=== PATIENT | male | born 1985 | race Caucasian/White ===

== ENCOUNTER 2018-01-22 15:47 | Inpatient (IN) | payer OTHER ==
[2018-01-22 17:59] VITALS: BMI 40.8
--- NOTE | 2018-01-22 20:21 | HP ---
Admission ROS [facility] Chief Complaint: Rehab for alcohol dependence Allergies/Adverse Reactions: Allergies Allergy/AdvReac Type Severity Reaction Status Date / Time No Known Allergies Allergy Verified 01/22/18 18:51 History of Present Illness: 32 years old male with a long history of alcohol dependence is seeking admission to Rehab. Patient was recently detoxed at [facility]. He has medical history of chronic back pain, anxiety and depression. Patient reports suicidal attempt in 2011 and on January 09, 2018. Denies suicidal ideation at this time. This is his first admission to [facility]. Exam Limitations: No Limitations - Ebola screening Have you traveled outside of the country in the last 21 days: No Have you had contact with anyone from an Ebola affected area: No Have you been sick,other than usual withdrawal symptoms: No Do you have a fever: No - Review of Systems Constitutional: No Symptoms Reported EENT: reports: No Symptoms Reported Respiratory: reports: No Symptoms reported Cardiac: reports: No Symptoms Reported GI: reports: No Symptoms Reported : reports: No Symptoms Reported Musculoskeletal: reports: No Symptoms Reported Integumentary: reports: No Symptoms Reported Neuro: reports: No Symptoms reported Endocrine: reports: No Symptoms Reported Hematology: reports: No Symptoms Reported Psychiatric: reports: No Sypmtoms Reported, Mood/Affect Appropiate, Orientated x3 Other Systems: Reviewed and Negative Patient History - Patient Medical History Hx Anemia: No Hx Asthma: No Hx Chronic Obstructive Pulmonary Disease (COPD): No Hx Cancer: No Hx Cardiac Disorders: No Hx Congestive Heart Failure: No Hx Hypertension: No Hx Hypercholesterolemia: No HX Cerebrovascular Accident: No Hx Seizures: Yes (Not on medication) Hx Diabetes: No Hx Gastrointestinal Disorders: No Hx Liver Disease: No Hx Genitourinary Disorders: No Hx Sexually Transmitted Disorders: No Hx Renal Disease (ESRD): No Hx Thyroid Disease: No Hx Human Immunodeficiency Virus (HIV): No (Negative 2017) Hx Hepatitis C: No Hx Depression: Yes (Not on medication) Hx Suicide Attempt: Yes (Reports attempt in 2011 & January 09, 2018. Denies suicidal ideation now.) Hx Bipolar Disorder: No Hx Schizophrenia: No Other Medical History: OBESITY - Patient Surgical History Past Surgical History: No - PPD History Previous Implant?: Yes Documented Results: Negative w/o proof Implanted On Prior [facility] Admission?: No PPD to be Administered?: Yes - Reproductive History Patient is a Female of Child Bearing Age (11 -55 yrs old): No (MALE) - Smoking Cessation Smoking history: Former smoker Have you smoked in the past 12 months: No If you are a former smoker, when did you quit?: 15 years ago Hx Chewing Tobacco Use: No Initiated information on smoking cessation: No - Substance & Tx. History Hx Alcohol Use: Yes Hx Substance Use: No Substance Use Type: Alcohol Hx Substance Use Treatment: Yes ([facility]) - Substances Abused Alcohol Route: Oral Amount used: SERAFIN - 1 LITER Age of first use: 20 Date of Last Use: 01/09/18 Family Disease History - Family Disease History Family Disease History: Diabetes: Father (rheumathoid arrthritis), Respiratory: Mother (rheumathoid arthritis, astrhma), Other: Father, Mother Admission Physical Exam [facility] - Vital Signs Vital Signs: Vital Signs - 24 hr 01/22/18 17:57 Temperature 98.1 F Pulse Rate 83 Respiratory 18 Rate Blood Pressure 124/74 - Physical General Appearance: Yes: No Apparent Distress, Appropriately Dressed HEENTM: Yes: EOMI, Normal ENT Inspection, Normal Voice, NELDA Respiratory: Yes: Lungs Clear, Normal Breath Sounds, No Respiratory Distress Neck: Yes: Supple, Trachea in good position Breast: Yes: Breast Exam Deferred Cardiology: Yes: Regular Rhythm, Regular Rate, S1, S2 Abdominal: Yes: Normal Bowel Sounds, Soft Genitourinary: Yes: Within Normal Limits Back: Yes: Normal Inspection Musculoskeletal: Yes: Within Normal Limits Extremities: Yes: Normal Inspection, Non-Tender Neurological: Yes: Alert, Normal Mood/Affect Integumentary: Yes: Dry Lymphatic: Yes: Within Normal Limits - Diagnostic (1) Alcohol dependence, uncomplicated Current Visit: Yes Status: Chronic (2) Anxiety Current Visit: Yes Status: Chronic (3) Depression Current Visit: Yes Status: Chronic Qualifiers: Depression Type: unspecified Qualified Code(s): F32.9 - Major depressive disorder, single episode, unspecified (4) Back pain Current Visit: Yes Status: Acute Qualifiers: Back pain location: low back pain (5) Low back pain Current Visit: Yes Status: Chronic Qualifiers: Chronicity: chronic Cleared for Admission [facility] - Detox or Rehab [facility] Level of Care: Observation Bed Claeared for Rehab Admission: Yes [facility] Breath Alcohol Content Breath Alcohol Content: 0 Urine Drug Screen - Results Drug Screen Negative: No Urine Drug Screen Results: BZO-Benzodiazepines Inpatient Rehab Admission - Initial Determination Are CD services needed?: Yes Free of communicable disease: Yes Not in need of hospitalization: Yes - Rehab Admission Criteria Previous failed treatment: Yes Poor recovery environment: Yes Comorbidities: Yes Lacks judgement: No Patient is meeting Inpatient Rehab admission criteria:: Yes
[2018-01-22] MEDS ORDERED: MAGNESIUM CITRATE 300 ML BOTTLE PO PRN (20:35)
[2018-01-22] MEDS ORDERED: LOPERAMIDE HCL 2 MG CAPSULE PO PRN (20:35)
[2018-01-22] MEDS ORDERED: MAGNESIUM HYDROX 2400MG/30ML ORAL SUSPENSION 30 ML CUP PO PRN (20:35)
[2018-01-22] MEDS ORDERED: MENTHOL/PHENOL 1 EACH UD MM PRN (20:35)
[2018-01-22] MEDS ORDERED: P-EPHED 60MG/TRIPROLIDI 2.5MG TABLET PO PRN (20:35)
[2018-01-22] MEDS ORDERED: MAG HYDROX/AL HYDROX/SIMETH 30 ML UNIT-DOSE CUP PO PRN (20:35)
[2018-01-22] MEDS ORDERED: guaiFENesin/D-METHORPHAN HB 10 ML UNIT-DOSE CUPS PO PRN (20:35)
[2018-01-22] MEDS ORDERED: ACETAMINOPHEN 325 MG TABLET (FP) PO PRN (20:35)
--- NOTE | 2018-01-22 21:15 | PN ---
[facility] Progress Note Note: Newly admitted patient from [facility]. Medication reconciliation done(Sertraline 50 mg po daily, Seroquel 100 mg po HS and Risperdal 0.5 mg po daily). Home medication list from [facility] showed that Seroquel was last taken by patient on and Sertraline, Risperdal last taken on 01/22/18
[2018-01-22] MEDS ORDERED: MELATONIN 5 MG TABLETS PO PRN (22:00)
[2018-01-22] MEDS ORDERED: QUEtiapine FUMARATE 100 MG TABLET (FP) PO SCH (22:00)
[2018-01-22] MEDS: THIAMINE HCL 100 MG TABLET (FP) PO SCH (22:59)
[2018-01-22] MEDS ORDERED: TUBERCULIN PPD 5 TU/0.1ML VIAL ID ONE (23:16)
[2018-01-23 08:52] LABS: URINE APPEARANCE CLEAR; URINE BILIRUBIN NEGATIVE (<2.0 mg/dL); URINE GLUCOSE (UA) NEGATIVE (NEGATIVE); URINE KETONE NEGATIVE (NEGATIVE); URINE LEUK ESTERASE NEGATIVE (NEGATIVE); URINE NITRITE NEGATIVE (NEGATIVE); URINE UROBILINOGEN 4.0 E.U/dl mg/dL (0.2-1.0)
[2018-01-23 09:06] LABS: URINE COLOR DK YELLOW; URINE PROTEIN 1+ (NEGATIVE)
[2018-01-23 09:12] LABS: EPI CELLS RARE /HPF (FEW); URINE HYALINE CAST 1 /lpf; URINE MUCUS RARE
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
[2018-01-23] MEDS: PRENATAL VITAMINS W/ FOLIC ACID TABLET (FP) PO SCH (10:35)
[2018-01-23] MEDS: SERTRALINE HCL 50 MG TABLET (FP) PO SCH (10:35)
[2018-01-23] MEDS: risperiDONE 1 MG TABLET (FP) PO SCH (10:35)
[2018-01-23] MEDS: hydrOXYzine PAMOATE 50 MG CAPSULE (FP) PO PRN ×2 (10:46→14:52)
--- NOTE | 2018-01-23 10:53 | EKG ---
Test Reason : Blood Pressure : / mmHG Vent. Rate : 078 BPM Atrial Rate : 078 BPM P-R Int : 168 ms QRS Dur : 104 ms QT Int : 418 ms P-R-T Axes : 036 001 027 degrees QTc Int : 476 ms NORMAL SINUS RHYTHM NORMAL ECG NO PREVIOUS ECGS AVAILABLE Confirmed by NICOLE MASON, RUTHY ([id number]) on 01/23/2018 10:53:12 AM Referred By: Confirmed By:RUTHY RIVERA MD
[2018-01-23 10:54] LABS: HEMATOCRIT 38.8 % (35.4-49); HEMOGLOBIN 13.1 GM/dL (11.7-16.9); MCH 31.3 pg (25.7-33.7); MCHC 33.7 g/dl (32.0-35.9); MEAN CELL VOLUME 93.1 fl (80-96); MEAN PLT VOLUME 8.9 fl (7.5-11.1); PLATELET COUNT 125 K/MM3 (134-434); RBC 4.16 M/mm3 (4.00-5.60); RDW 17.2 % (11.9-15.9); WHITE BLOOD COUNT 3.4 K/mm3 (4.0-10.0)
[2018-01-23 11:00] LABS: ALBUMIN 3.6 g/dl (3.4-5.0); ALK PHOS 87 U/L (45-117); ANION GAP 6 (8-16); BILIRUBIN,TOTAL 0.5 mg/dL (0.2-1.0); BLOOD UREA NITROGEN 9 mg/dL (7-18); CALCIUM 8.5 mg/dL (8.5-10.1); CHLORIDE 106 mmol/L (98-107); CO2 29 mmol/L (21-32); CREATININE 0.6 mg/dL (0.7-1.3); GLUCOSE,RANDOM 120 mg/dL (74-106); POTASSIUM 4.1 mmol/L (3.5-5.1); SGOT/AST 40 U/L (15-37); SGPT/ALT 40 U/L (12-78); SODIUM 141 mmol/L (136-145)
[2018-01-23] MEDS: GABAPENTIN 100 MG CAPSULE (FP) PO SCH ×2 (14:51→21:59)
[2018-01-23] MEDS: THIAMINE HCL 100 MG TABLET (FP) PO SCH (21:59)
[2018-01-23] MEDS: QUEtiapine FUMARATE 200 MG TABLET PO SCH (21:59)
[2018-01-24] MEDS: hydrOXYzine PAMOATE 50 MG CAPSULE (FP) PO PRN ×4 (06:14→21:52)
[2018-01-24] MEDS: GABAPENTIN 100 MG CAPSULE (FP) PO SCH ×3 (06:14→21:52)
[2018-01-24] MEDS: risperiDONE 1 MG TABLET (FP) PO SCH (10:15)
[2018-01-24] MEDS: SERTRALINE HCL 50 MG TABLET (FP) PO SCH (10:15)
[2018-01-24] MEDS: PRENATAL VITAMINS W/ FOLIC ACID TABLET (FP) PO SCH (10:15)
[2018-01-24] MEDS: THIAMINE HCL 100 MG TABLET (FP) PO SCH (21:52)
[2018-01-24] MEDS: QUEtiapine FUMARATE 200 MG TABLET PO SCH (21:52)
[2018-01-25] MEDS: GABAPENTIN 100 MG CAPSULE (FP) PO SCH ×3 (06:10→21:45)
[2018-01-25] MEDS: PRENATAL VITAMINS W/ FOLIC ACID TABLET (FP) PO SCH (10:26)
[2018-01-25] MEDS: SERTRALINE HCL 50 MG TABLET (FP) PO SCH (10:26)
[2018-01-25] MEDS: hydrOXYzine PAMOATE 50 MG CAPSULE (FP) PO PRN ×3 (10:26→19:56)
[2018-01-25] MEDS: risperiDONE 1 MG TABLET (FP) PO SCH (10:26)
[2018-01-25] MEDS: QUEtiapine FUMARATE 200 MG TABLET PO SCH (21:45)
[2018-01-25] MEDS: THIAMINE HCL 100 MG TABLET (FP) PO SCH (21:45)
[2018-01-26] MEDS: GABAPENTIN 100 MG CAPSULE (FP) PO SCH ×3 (06:10→21:36)
[2018-01-26] MEDS: hydrOXYzine PAMOATE 50 MG CAPSULE (FP) PO PRN ×4 (06:12→20:07)
[2018-01-26] MEDS: risperiDONE 1 MG TABLET (FP) PO SCH (10:06)
[2018-01-26] MEDS: SERTRALINE HCL 50 MG TABLET (FP) PO SCH (10:06)
[2018-01-26] MEDS: PRENATAL VITAMINS W/ FOLIC ACID TABLET (FP) PO SCH (10:06)
[2018-01-26] MEDS: THIAMINE HCL 100 MG TABLET (FP) PO SCH (21:36)
[2018-01-26] MEDS: QUEtiapine FUMARATE 200 MG TABLET PO SCH (21:36)
[2018-01-27] MEDS: GABAPENTIN 100 MG CAPSULE (FP) PO SCH ×3 (06:14→21:31)
[2018-01-27] MEDS: hydrOXYzine PAMOATE 50 MG CAPSULE (FP) PO PRN ×4 (06:15→19:51)
[2018-01-27] MEDS: PRENATAL VITAMINS W/ FOLIC ACID TABLET (FP) PO SCH (10:17)
[2018-01-27] MEDS: risperiDONE 1 MG TABLET (FP) PO SCH (10:17)
[2018-01-27] MEDS: SERTRALINE HCL 50 MG TABLET (FP) PO SCH (10:17)
[2018-01-27] MEDS: THIAMINE HCL 100 MG TABLET (FP) PO SCH (21:31)
[2018-01-27] MEDS: QUEtiapine FUMARATE 200 MG TABLET PO SCH (21:31)
[2018-01-28] MEDS: GABAPENTIN 100 MG CAPSULE (FP) PO SCH ×3 (06:04→21:47)
[2018-01-28] MEDS: hydrOXYzine PAMOATE 50 MG CAPSULE (FP) PO PRN ×4 (06:05→20:35)
[2018-01-28] MEDS: risperiDONE 1 MG TABLET (FP) PO SCH (10:46)
[2018-01-28] MEDS: SERTRALINE HCL 50 MG TABLET (FP) PO SCH (10:46)
[2018-01-28] MEDS: PRENATAL VITAMINS W/ FOLIC ACID TABLET (FP) PO SCH (10:46)
[2018-01-28] MEDS: QUEtiapine FUMARATE 200 MG TABLET PO SCH (21:47)
[2018-01-28] MEDS: THIAMINE HCL 100 MG TABLET (FP) PO SCH (21:47)
[2018-01-29] MEDS: GABAPENTIN 100 MG CAPSULE (FP) PO SCH ×4 (06:09→21:41)
[2018-01-29] MEDS: hydrOXYzine PAMOATE 50 MG CAPSULE (FP) PO PRN ×4 (06:09→20:04)
[2018-01-29] MEDS: PRENATAL VITAMINS W/ FOLIC ACID TABLET (FP) PO SCH (10:19)
[2018-01-29] MEDS: SERTRALINE HCL 50 MG TABLET (FP) PO SCH (10:19)
[2018-01-29] MEDS: risperiDONE 1 MG TABLET (FP) PO SCH (10:19)
--- NOTE | 2018-01-29 14:38 | PN ---
Psychiatric Progress Note Vital Signs: Vital Signs Period Temp Pulse Resp BP Sys/Pitt Pulse Ox Last 24 Hr 99.0 F 63 16-18 128/66 Date of Session: 01/29/18 Chief Complaint:: progress update HPI: Patient is addressing alcohol dependence comorbid MDD. ROS: chronic back pain, obesity, seizures(not on meds). Current Medications: Active Medications Generic Name Dose Route Start Last Admin Trade Name Freq PRN Reason Stop Dose Admin Acetaminophen 650 mg 01/22/18 20:35 Tylenol - PO Q4H PRN FEVER Al Hydroxide/Mg Hydroxide 30 ml 01/22/18 20:35 Mylanta Oral Suspension - PO Q6H PRN DYSPEPSIA Eucalyptus/Menthol/Phenol/Sorbitol 1 each 01/22/18 20:35 Cepastat Lozenge - MM Q4H PRN SORE THROAT Gabapentin 200 mg 01/29/18 14:31 Neurontin - PO TID FREDI Guaifenesin 10 ml 01/22/18 20:35 Robitussin Dm - PO Q6H PRN COUGH Hydroxyzine Pamoate 50 mg 01/23/18 10:26 01/29/18 14:21 Vistaril - PO 50 mg Q4H PRN Administration ANXIETY Ibuprofen 400 mg 01/22/18 20:35 Motrin - PO Q6H PRN Pain level 4-6 Loperamide HCl 4 mg 01/22/18 20:35 Imodium - PO Q6H PRN DIARRHEA Magnesium Citrate 300 ml 01/22/18 20:35 Citroma - PO Q48H PRN CONSTIPATION Magnesium Hydroxide 30 ml 01/22/18 20:35 Milk Of Magnesia - PO DAILY PRN CONSTIPATION Melatonin 5 mg 01/22/18 22:00 Melatonin PO HS PRN INSOMNIA Multivit/Folic Acid/Iron 1 tab 01/23/18 10:00 01/29/18 10:19 Vitamins (Sjr) - PO 1 tab DAILY FREDI Administration Pseudoephedrine/Triprolidine 1 combo 01/22/18 20:35 Actifed - PO TID PRN NASAL CONGESTION Quetiapine Fumarate 200 mg 01/23/18 22:00 01/28/18 21:47 Seroquel - PO 200 mg HS FREDI Administration Risperidone 1 mg 01/23/18 10:00 01/29/18 10:19 Risperdal - PO 1 mg DAILY FREDI Administration Sertraline HCl 50 mg 01/23/18 10:00 01/29/18 10:19 Zoloft - PO 50 mg DAILY FREDI Administration Thiamine HCl 100 mg 01/22/18 22:00 01/28/18 21:47 Vitamin B1 - PO 100 mg HS FREDI Administration Current Side Effect: No Lab tests ordered: No Lab tests reviewed: Yes Provider note:: Patient was seen today, he is visilble on the unit, attends and participates in group discussion, patient reports he has a periods at nights when he does not know wher he is, "it takes time to realize where i am", states after a few minutes he knows that he is in his room. He reports that duering day time he gets anxious and takes Vistaril often, he tilerates medications well,no side-effects reported, will increase Gabapentin 200 mg po tid, supportive therapy provided, continue to monitor progress. Total face to face time:: 25 Mental Status Exam - Mental Status Exam Alert and Oriented to: Time, Place, Person Cognitive Function: Good Patient Appearance: Well Groomed Mood: Anxious Affect: Appropriate, Mood Congruent Patient Behavior: Appropriate, Cooperative Speech Pattern: Clear, Appropriate Voice Loudness: Normal Thought Process: Intact, Goal Oriented Hallucinations: Denies Suicidal Ideation: Denies Homicidal Ideation: Denies Insight/Judgement: Fair Sleep: Fair Appetite: Fair Muscle strength/Tone: Normal Gait/Station: Normal Psychiatric Treatment Plan - Problem List (1) Alcohol dependence Current Visit: Yes (2) MDD (major depressive disorder), recurrent, severe, with psychosis Current Visit: Yes
[2018-01-29] MEDS: QUEtiapine FUMARATE 200 MG TABLET PO SCH (21:41)
[2018-01-29] MEDS: THIAMINE HCL 100 MG TABLET (FP) PO SCH (21:41)
[2018-01-30] MEDS: hydrOXYzine PAMOATE 50 MG CAPSULE (FP) PO PRN ×4 (06:15→20:03)
[2018-01-30] MEDS: GABAPENTIN 100 MG CAPSULE (FP) PO SCH ×3 (06:15→21:33)
[2018-01-30] MEDS: PRENATAL VITAMINS W/ FOLIC ACID TABLET (FP) PO SCH (10:26)
[2018-01-30] MEDS: risperiDONE 1 MG TABLET (FP) PO SCH (10:26)
[2018-01-30] MEDS: SERTRALINE HCL 50 MG TABLET (FP) PO SCH (10:26)
[2018-01-30] MEDS: THIAMINE HCL 100 MG TABLET (FP) PO SCH (21:33)
[2018-01-30] MEDS: QUEtiapine FUMARATE 200 MG TABLET PO SCH (21:33)
[2018-01-31] MEDS: hydrOXYzine PAMOATE 50 MG CAPSULE (FP) PO PRN ×4 (06:02→20:06)
[2018-01-31] MEDS: GABAPENTIN 100 MG CAPSULE (FP) PO SCH ×3 (06:02→21:59)
[2018-01-31] MEDS: IBUPROFEN 400 MG TABLET (FP) PO PRN ×2 (07:19→18:30)
[2018-01-31] MEDS: SERTRALINE HCL 50 MG TABLET (FP) PO SCH (10:28)
[2018-01-31] MEDS: PRENATAL VITAMINS W/ FOLIC ACID TABLET (FP) PO SCH (10:28)
[2018-01-31] MEDS: risperiDONE 1 MG TABLET (FP) PO SCH (10:28)
[2018-01-31] MEDS: QUEtiapine FUMARATE 200 MG TABLET PO SCH (21:59)
[2018-01-31] MEDS: THIAMINE HCL 100 MG TABLET (FP) PO SCH (21:59)
[2018-02-01] MEDS: hydrOXYzine PAMOATE 50 MG CAPSULE (FP) PO PRN ×4 (06:17→20:09)
[2018-02-01] MEDS: GABAPENTIN 100 MG CAPSULE (FP) PO SCH ×2 (06:17→14:23)
[2018-02-01] MEDS: PRENATAL VITAMINS W/ FOLIC ACID TABLET (FP) PO SCH (10:05)
[2018-02-01] MEDS: risperiDONE 1 MG TABLET (FP) PO SCH (10:05)
[2018-02-01] MEDS: SERTRALINE HCL 50 MG TABLET (FP) PO SCH (10:05)
--- NOTE | 2018-02-01 15:29 | PN ---
Psychiatric Progress Note Vital Signs: Vital Signs Period Temp Pulse Resp BP Sys/Pitt Pulse Ox Last 24 Hr 97.5 F 67 16-18 127/66 Date of Session: 02/01/18 Chief Complaint:: "stressed out" HPI: Patient is addressing alcohol dependence comorbid MDD. ROS: chronic back pain, obesity, seizures(not on meds) Current Medications: Active Medications Generic Name Dose Route Start Last Admin Trade Name Freq PRN Reason Stop Dose Admin Acetaminophen 650 mg 01/22/18 20:35 Tylenol - PO Q4H PRN FEVER Al Hydroxide/Mg Hydroxide 30 ml 01/22/18 20:35 Mylanta Oral Suspension - PO Q6H PRN DYSPEPSIA Eucalyptus/Menthol/Phenol/Sorbitol 1 each 01/22/18 20:35 Cepastat Lozenge - MM Q4H PRN SORE THROAT Gabapentin 200 mg 01/29/18 15:45 02/01/18 14:23 Neurontin - PO 200 mg TID FREDI Administration Guaifenesin 10 ml 01/22/18 20:35 Robitussin Dm - PO Q6H PRN COUGH Hydroxyzine Pamoate 50 mg 01/23/18 10:26 02/01/18 14:23 Vistaril - PO 50 mg Q4H PRN Administration ANXIETY Ibuprofen 400 mg 01/22/18 20:35 01/31/18 18:30 Motrin - PO 400 mg Q6H PRN Administration Pain level 4-6 Loperamide HCl 4 mg 01/22/18 20:35 Imodium - PO Q6H PRN DIARRHEA Magnesium Citrate 300 ml 01/22/18 20:35 Citroma - PO Q48H PRN CONSTIPATION Magnesium Hydroxide 30 ml 01/22/18 20:35 Milk Of Magnesia - PO DAILY PRN CONSTIPATION Melatonin 5 mg 01/22/18 22:00 Melatonin PO HS PRN INSOMNIA Multivit/Folic Acid/Iron 1 tab 01/23/18 10:00 02/01/18 10:05 Vitamins (Sjr) - PO 1 tab DAILY FREDI Administration Pseudoephedrine/Triprolidine 1 combo 01/22/18 20:35 Actifed - PO TID PRN NASAL CONGESTION Quetiapine Fumarate 200 mg 01/23/18 22:00 01/31/18 21:59 Seroquel - PO 200 mg HS FREDI Administration Risperidone 1 mg 01/23/18 10:00 02/01/18 10:05 Risperdal - PO 1 mg DAILY FREDI Administration Sertraline HCl 50 mg 01/23/18 10:00 02/01/18 10:05 Zoloft - PO 50 mg DAILY FREDI Administration Thiamine HCl 100 mg 01/22/18 22:00 01/31/18 21:59 Vitamin B1 - PO 100 mg HS FREDI Administration Medication(s) Change(s): increase Gabapentin 300 mg po tid, Risperdal 2 mg po daily, Zoloft 100 mg po daily. Current Side Effect: No Lab tests ordered: No Lab tests reviewed: Yes Provider note:: Patient was seen today reports he stressed out "with people around me", feels that they are after him "pointing on me", trying to direct him , he isvisibly upset and anxious, also c/o hearing voices "but they are positive now". Reviewed medications with the patient , discussed indications and properties of each, will adjust medications, supportive therapy provided, continue to monitor progress. Total face to face time:: 35 Mental Status Exam - Mental Status Exam Alert and Oriented to: Time, Place, Person Cognitive Function: Good Patient Appearance: Well Groomed Mood: Sad, Anxious Affect: Mood Congruent, Labile Patient Behavior: Appropriate, Cooperative Speech Pattern: Clear, Appropriate Voice Loudness: Normal Thought Process: Intact, Goal Oriented Thought Disorder: Paranoid Ideation Hallucinations: Auditory (hears voices "but they are positive") Suicidal Ideation: Denies Homicidal Ideation: Denies Insight/Judgement: Fair Sleep: Fair Appetite: Fair Muscle strength/Tone: Normal Gait/Station: Normal Psychiatric Treatment Plan - Problem List (1) Alcohol dependence Current Visit: Yes (2) MDD (major depressive disorder), recurrent, severe, with psychosis Current Visit: Yes
[2018-02-01] MEDS: QUEtiapine FUMARATE 200 MG TABLET PO SCH (21:40)
[2018-02-01] MEDS: GABAPENTIN 300 MG CAPSULE (FP) PO SCH (21:40)
[2018-02-01] MEDS: THIAMINE HCL 100 MG TABLET (FP) PO SCH (21:40)
[2018-02-02] MEDS: hydrOXYzine PAMOATE 50 MG CAPSULE (FP) PO PRN ×4 (06:17→20:06)
[2018-02-02] MEDS: GABAPENTIN 300 MG CAPSULE (FP) PO SCH ×3 (06:17→21:40)
[2018-02-02] MEDS: SERTRALINE HCL 50 MG TABLET (FP) PO SCH (10:07)
[2018-02-02] MEDS: PRENATAL VITAMINS W/ FOLIC ACID TABLET (FP) PO SCH (10:07)
[2018-02-02] MEDS: risperiDONE 2 MG TABLET PO SCH (10:07)
[2018-02-02] MEDS: THIAMINE HCL 100 MG TABLET (FP) PO SCH (21:40)
[2018-02-02] MEDS: QUEtiapine FUMARATE 200 MG TABLET PO SCH (21:40)
[2018-02-03] MEDS: GABAPENTIN 300 MG CAPSULE (FP) PO SCH ×3 (06:17→21:45)
[2018-02-03] MEDS: hydrOXYzine PAMOATE 50 MG CAPSULE (FP) PO PRN ×4 (06:17→19:55)
[2018-02-03] MEDS: PRENATAL VITAMINS W/ FOLIC ACID TABLET (FP) PO SCH (10:10)
[2018-02-03] MEDS: risperiDONE 2 MG TABLET PO SCH (10:10)
[2018-02-03] MEDS: SERTRALINE HCL 50 MG TABLET (FP) PO SCH (10:10)
[2018-02-03] MEDS: IBUPROFEN 400 MG TABLET (FP) PO PRN (12:58)
[2018-02-03] MEDS: THIAMINE HCL 100 MG TABLET (FP) PO SCH (21:45)
[2018-02-03] MEDS: QUEtiapine FUMARATE 200 MG TABLET PO SCH (21:45)
[2018-02-04] MEDS: GABAPENTIN 300 MG CAPSULE (FP) PO SCH ×3 (06:07→21:45)
[2018-02-04] MEDS: hydrOXYzine PAMOATE 50 MG CAPSULE (FP) PO PRN ×4 (06:07→20:44)
[2018-02-04] MEDS: PRENATAL VITAMINS W/ FOLIC ACID TABLET (FP) PO SCH (09:53)
[2018-02-04] MEDS: SERTRALINE HCL 50 MG TABLET (FP) PO SCH (09:53)
[2018-02-04] MEDS: risperiDONE 2 MG TABLET PO SCH (09:53)
[2018-02-04] MEDS: QUEtiapine FUMARATE 200 MG TABLET PO SCH (21:45)
[2018-02-04] MEDS: THIAMINE HCL 100 MG TABLET (FP) PO SCH (21:46)
[2018-02-05] MEDS: hydrOXYzine PAMOATE 50 MG CAPSULE (FP) PO PRN ×4 (06:02→19:51)
[2018-02-05] MEDS: GABAPENTIN 300 MG CAPSULE (FP) PO SCH ×3 (06:02→21:49)
[2018-02-05] MEDS: PRENATAL VITAMINS W/ FOLIC ACID TABLET (FP) PO SCH (10:29)
[2018-02-05] MEDS: risperiDONE 2 MG TABLET PO SCH (10:29)
[2018-02-05] MEDS: SERTRALINE HCL 50 MG TABLET (FP) PO SCH (10:29)
[2018-02-05] MEDS: GABAPENTIN 100 MG CAPSULE (FP) PO SCH (14:23)
--- NOTE | 2018-02-05 14:52 | PN ---
[facility] Progress Note Note: Patient c/o of non-radiating midsternal chest pain sine this morning. Patient reports pain worsens with cough. As per patient he had a prior episode of this event resulting in hospitalization for anxiety and viral infection. Denies SOB , vertigo, or parethesia. Vital Signs Temperature 98.3 F 02/05/18 06:52 Pulse Rate 74 02/05/18 06:52 Respiratory Rate 20 02/05/18 06:52 Blood Pressure 131/63 02/05/18 06:52 O2 Sat by Pulse Oximetry (%) Laboratory Last Values WBC 3.4 K/mm3 (4.0-10.0) L 01/23/18 07:00 RBC 4.16 M/mm3 (4.00-5.60) 01/23/18 07:00 Hgb 13.1 GM/dL (11.7-16.9) 01/23/18 07:00 Hct 38.8 % (35.4-49) 01/23/18 07:00 MCV 93.1 fl (80-96) 01/23/18 07:00 MCH 31.3 pg (25.7-33.7) 01/23/18 07:00 MCHC 33.7 g/dl (32.0-35.9) 01/23/18 07:00 RDW 17.2 % (11.9-15.9) H 01/23/18 07:00 Plt Count 125 K/MM3 (134-434) L 01/23/18 07:00 MPV 8.9 fl (7.5-11.1) 01/23/18 07:00 Sodium 141 mmol/L (136-145) 01/23/18 07:00 Potassium 4.1 mmol/L (3.5-5.1) 01/23/18 07:00 Chloride 106 mmol/L (98-107) 01/23/18 07:00 Carbon Dioxide 29 mmol/L (21-32) 01/23/18 07:00 Anion Gap 6 (8-16) L 01/23/18 07:00 BUN 9 mg/dL (7-18) 01/23/18 07:00 Creatinine 0.6 mg/dL (0.7-1.3) L 01/23/18 07:00 Creat Clearance w eGFR > 60 (>60) 01/23/18 07:00 Random Glucose 120 mg/dL (74-106) H 01/23/18 07:00 Calcium 8.5 mg/dL (8.5-10.1) 01/23/18 07:00 Total Bilirubin 0.5 mg/dL (0.2-1.0) 01/23/18 07:00 AST 40 U/L (15-37) H 01/23/18 07:00 ALT 40 U/L (12-78) 01/23/18 07:00 Alkaline Phosphatase 87 U/L (45-117) 01/23/18 07:00 Total Protein 7.0 g/dl (6.4-8.2) 01/23/18 07:00 Albumin 3.6 g/dl (3.4-5.0) 01/23/18 07:00 Urine Color Dk yellow 01/22/18 22:00 Urine Appearance Clear 01/22/18 22:00 Urine pH 7.0 (5.0-8.0) 01/22/18 22:00 Ur Specific [place] 1.024 (1.001-1.035) 01/22/18 22:00 Urine Protein 1+ (NEGATIVE) H 01/22/18 22:00 Urine Glucose (UA) Negative (NEGATIVE) 01/22/18 22:00 Urine Ketones Negative (NEGATIVE) 01/22/18 22:00 Urine Blood Negative (NEGATIVE) 01/22/18 22:00 Urine Nitrite Negative (NEGATIVE) 01/22/18 22:00 Urine Bilirubin Negative (<2.0 mg/dL) 01/22/18 22:00 Urine Urobilinogen 4.0 e.u/dl mg/dL (0.2-1.0) 01/22/18 22:00 Ur Leukocyte Esterase Negative (NEGATIVE) 01/22/18 22:00 Urine WBC (Auto) 1 /hpf (3-5) 01/22/18 22:00 Urine RBC (Auto) <1 /hpf (0-3) 01/22/18 22:00 Ur Epithelial Cells Rare /HPF (FEW) 01/22/18 22:00 Hyaline Casts 1 /lpf 01/22/18 22:00 Urine Mucus Rare 01/22/18 22:00 RPR Titer Nonreactive (NONREACTIVE) 01/23/18 07:00 Hep C Ab Diagnostic 0.3 s/co ratio (0.0-0.9) 01/23/18 07:00 Liver Fibrosis Interp (.) 01/23/18 07:00 HIV 1&2 Antibody Screen Negative 01/23/18 07:00 HIV P24 Antigen Negative 01/23/18 07:00 A/P Patient AOX3, no distress Normal HR and Rhythm, reproducible midsternal pain Lungs clear bilaterally no adventitious breath sounds extremities warm, no edema, pulses present EKG: normal sinus rhythm Assessment : Costochondiritis Plan: Ibuprofen 600mg PRN Increase fluids Continue to monitor Patient advise to notify staff if worsening symptoms are present
--- NOTE | 2018-02-05 16:25 | EKG ---
Test Reason : Blood Pressure : / mmHG Vent. Rate : 061 BPM Atrial Rate : 061 BPM P-R Int : 184 ms QRS Dur : 102 ms QT Int : 436 ms P-R-T Axes : 038 005 038 degrees QTc Int : 438 ms NORMAL SINUS RHYTHM NORMAL ECG WHEN COMPARED WITH ECG OF 22-JAN-2018 22:42, NO SIGNIFICANT CHANGE WAS FOUND Confirmed by MD PAULETTE, JADA ([id number]) on 02/05/2018 4:24:35 PM Referred By: Eddie DUMONT Confirmed By:JADA CALDWELL MD
[2018-02-05] MEDS: THIAMINE HCL 100 MG TABLET (FP) PO SCH (21:49)
[2018-02-05] MEDS: QUEtiapine FUMARATE 200 MG TABLET PO SCH (21:49)
[2018-02-05] MEDS: IBUPROFEN 400 MG TABLET (FP) PO PRN (21:50)
[2018-02-06] MEDS: GABAPENTIN 300 MG CAPSULE (FP) PO SCH ×3 (06:10→21:36)
[2018-02-06] MEDS: hydrOXYzine PAMOATE 50 MG CAPSULE (FP) PO PRN ×4 (06:11→18:35)
[2018-02-06] MEDS: IBUPROFEN 400 MG TABLET (FP) PO PRN (06:11)
[2018-02-06] MEDS: risperiDONE 2 MG TABLET PO SCH (09:56)
[2018-02-06] MEDS: PRENATAL VITAMINS W/ FOLIC ACID TABLET (FP) PO SCH (09:56)
[2018-02-06] MEDS: SERTRALINE HCL 50 MG TABLET (FP) PO SCH (09:56)
[2018-02-06] MEDS: IBUPROFEN 600 MG TABLET (FP) PO PRN (14:40)
[2018-02-06] MEDS: QUEtiapine FUMARATE 200 MG TABLET PO SCH (21:36)
[2018-02-06] MEDS: THIAMINE HCL 100 MG TABLET (FP) PO SCH (21:36)
[2018-02-07] MEDS: GABAPENTIN 300 MG CAPSULE (FP) PO SCH ×3 (06:04→21:47)
[2018-02-07] MEDS: SERTRALINE HCL 50 MG TABLET (FP) PO SCH (09:58)
[2018-02-07] MEDS: risperiDONE 2 MG TABLET PO SCH (09:58)
[2018-02-07] MEDS: PRENATAL VITAMINS W/ FOLIC ACID TABLET (FP) PO SCH (09:58)
[2018-02-07] MEDS: hydrOXYzine PAMOATE 50 MG CAPSULE (FP) PO PRN ×3 (09:58→21:47)
[2018-02-07] MEDS: QUEtiapine FUMARATE 200 MG TABLET PO SCH (21:47)
[2018-02-07] MEDS: THIAMINE HCL 100 MG TABLET (FP) PO SCH (21:47)
[2018-02-08] MEDS: hydrOXYzine PAMOATE 50 MG CAPSULE (FP) PO PRN ×4 (06:39→20:02)
[2018-02-08] MEDS: GABAPENTIN 300 MG CAPSULE (FP) PO SCH ×3 (06:40→21:58)
[2018-02-08] MEDS: risperiDONE 2 MG TABLET PO SCH (10:29)
[2018-02-08] MEDS: SERTRALINE HCL 50 MG TABLET (FP) PO SCH (10:29)
[2018-02-08] MEDS: PRENATAL VITAMINS W/ FOLIC ACID TABLET (FP) PO SCH (10:29)
[2018-02-08] MEDS: QUEtiapine FUMARATE 200 MG TABLET PO SCH (21:58)
[2018-02-08] MEDS: THIAMINE HCL 100 MG TABLET (FP) PO SCH (21:58)
[2018-02-09] MEDS: GABAPENTIN 300 MG CAPSULE (FP) PO SCH ×3 (06:02→21:55)
[2018-02-09] MEDS: hydrOXYzine PAMOATE 50 MG CAPSULE (FP) PO PRN ×3 (06:02→14:30)
[2018-02-09] MEDS: risperiDONE 2 MG TABLET PO SCH (10:28)
[2018-02-09] MEDS: PRENATAL VITAMINS W/ FOLIC ACID TABLET (FP) PO SCH (10:28)
[2018-02-09] MEDS: SERTRALINE HCL 50 MG TABLET (FP) PO SCH (10:28)
[2018-02-09] MEDS: QUEtiapine FUMARATE 200 MG TABLET PO SCH (21:55)
[2018-02-09] MEDS: THIAMINE HCL 100 MG TABLET (FP) PO SCH (21:55)
[2018-02-10] MEDS: hydrOXYzine PAMOATE 50 MG CAPSULE (FP) PO PRN ×2 (06:16→11:15)
[2018-02-10] MEDS: GABAPENTIN 300 MG CAPSULE (FP) PO SCH ×3 (06:16→21:31)
[2018-02-10] MEDS: PRENATAL VITAMINS W/ FOLIC ACID TABLET (FP) PO SCH (10:11)
[2018-02-10] MEDS: SERTRALINE HCL 50 MG TABLET (FP) PO SCH (10:12)
[2018-02-10] MEDS: risperiDONE 2 MG TABLET PO SCH (10:12)
[2018-02-10] MEDS: THIAMINE HCL 100 MG TABLET (FP) PO SCH (21:31)
[2018-02-10] MEDS: QUEtiapine FUMARATE 200 MG TABLET PO SCH (21:31)
[2018-02-11] MEDS: GABAPENTIN 300 MG CAPSULE (FP) PO SCH ×3 (06:05→21:34)
[2018-02-11] MEDS: hydrOXYzine PAMOATE 50 MG CAPSULE (FP) PO PRN ×3 (06:05→21:34)
[2018-02-11] MEDS: SERTRALINE HCL 50 MG TABLET (FP) PO SCH (10:32)
[2018-02-11] MEDS: PRENATAL VITAMINS W/ FOLIC ACID TABLET (FP) PO SCH (10:32)
[2018-02-11] MEDS: risperiDONE 2 MG TABLET PO SCH (10:32)
[2018-02-11] MEDS: THIAMINE HCL 100 MG TABLET (FP) PO SCH (21:34)
[2018-02-11] MEDS: QUEtiapine FUMARATE 200 MG TABLET PO SCH (21:34)
[2018-02-12] MEDS: GABAPENTIN 300 MG CAPSULE (FP) PO SCH ×3 (06:03→21:30)
[2018-02-12] MEDS: hydrOXYzine PAMOATE 50 MG CAPSULE (FP) PO PRN ×3 (06:03→14:32)
[2018-02-12] MEDS: SERTRALINE HCL 50 MG TABLET (FP) PO SCH (10:05)
[2018-02-12] MEDS: PRENATAL VITAMINS W/ FOLIC ACID TABLET (FP) PO SCH (10:05)
[2018-02-12] MEDS: risperiDONE 2 MG TABLET PO SCH (10:05)
[2018-02-12] MEDS: THIAMINE HCL 100 MG TABLET (FP) PO SCH (21:30)
[2018-02-12] MEDS: QUEtiapine FUMARATE 200 MG TABLET PO SCH (21:30)
[2018-02-13] MEDS: GABAPENTIN 300 MG CAPSULE (FP) PO SCH ×3 (06:01→21:41)
[2018-02-13] MEDS: hydrOXYzine PAMOATE 50 MG CAPSULE (FP) PO PRN ×3 (06:01→14:11)
[2018-02-13] MEDS: IBUPROFEN 600 MG TABLET (FP) PO PRN (06:52)
[2018-02-13] MEDS: risperiDONE 2 MG TABLET PO SCH (09:57)
[2018-02-13] MEDS: SERTRALINE HCL 50 MG TABLET (FP) PO SCH (09:57)
[2018-02-13] MEDS: PRENATAL VITAMINS W/ FOLIC ACID TABLET (FP) PO SCH (09:57)
[2018-02-13] MEDS: THIAMINE HCL 100 MG TABLET (FP) PO SCH (21:41)
[2018-02-13] MEDS: QUEtiapine FUMARATE 200 MG TABLET PO SCH (21:41)
[2018-02-14] MEDS: GABAPENTIN 300 MG CAPSULE (FP) PO SCH ×3 (06:46→21:52)
[2018-02-14] MEDS: risperiDONE 2 MG TABLET PO SCH (10:10)
[2018-02-14] MEDS: SERTRALINE HCL 50 MG TABLET (FP) PO SCH (10:10)
[2018-02-14] MEDS: PRENATAL VITAMINS W/ FOLIC ACID TABLET (FP) PO SCH (10:10)
[2018-02-14] MEDS: hydrOXYzine PAMOATE 50 MG CAPSULE (FP) PO PRN ×2 (10:10→21:52)
[2018-02-14] MEDS: THIAMINE HCL 100 MG TABLET (FP) PO SCH (21:52)
[2018-02-14] MEDS: QUEtiapine FUMARATE 200 MG TABLET PO SCH (21:52)
[2018-02-15] MEDS: GABAPENTIN 300 MG CAPSULE (FP) PO SCH ×3 (06:36→21:27)
[2018-02-15] MEDS: hydrOXYzine PAMOATE 50 MG CAPSULE (FP) PO PRN ×3 (06:36→21:27)
[2018-02-15] MEDS: risperiDONE 2 MG TABLET PO SCH (10:05)
[2018-02-15] MEDS: PRENATAL VITAMINS W/ FOLIC ACID TABLET (FP) PO SCH (10:05)
[2018-02-15] MEDS: SERTRALINE HCL 50 MG TABLET (FP) PO SCH (10:05)
[2018-02-15] MEDS: THIAMINE HCL 100 MG TABLET (FP) PO SCH (21:27)
[2018-02-15] MEDS: QUEtiapine FUMARATE 200 MG TABLET PO SCH (21:27)
[2018-02-16] MEDS: GABAPENTIN 300 MG CAPSULE (FP) PO SCH ×3 (06:21→21:36)
[2018-02-16] MEDS: hydrOXYzine PAMOATE 50 MG CAPSULE (FP) PO PRN ×4 (06:21→21:36)
[2018-02-16] MEDS: SERTRALINE HCL 50 MG TABLET (FP) PO SCH (10:02)
[2018-02-16] MEDS: risperiDONE 2 MG TABLET PO SCH (10:02)
[2018-02-16] MEDS: PRENATAL VITAMINS W/ FOLIC ACID TABLET (FP) PO SCH (10:02)
[2018-02-16] MEDS: QUEtiapine FUMARATE 200 MG TABLET PO SCH (21:36)
[2018-02-16] MEDS: THIAMINE HCL 100 MG TABLET (FP) PO SCH (21:36)
[2018-02-17] MEDS: GABAPENTIN 300 MG CAPSULE (FP) PO SCH ×3 (06:22→21:40)
[2018-02-17] MEDS: hydrOXYzine PAMOATE 50 MG CAPSULE (FP) PO PRN ×4 (06:22→21:40)
[2018-02-17] MEDS: SERTRALINE HCL 50 MG TABLET (FP) PO SCH (10:21)
[2018-02-17] MEDS: PRENATAL VITAMINS W/ FOLIC ACID TABLET (FP) PO SCH (10:22)
[2018-02-17] MEDS: risperiDONE 2 MG TABLET PO SCH (10:22)
[2018-02-17] MEDS: THIAMINE HCL 100 MG TABLET (FP) PO SCH (21:40)
[2018-02-17] MEDS: QUEtiapine FUMARATE 200 MG TABLET PO SCH (21:40)
[2018-02-18] MEDS: GABAPENTIN 300 MG CAPSULE (FP) PO SCH ×3 (06:33→21:44)
[2018-02-18] MEDS: hydrOXYzine PAMOATE 50 MG CAPSULE (FP) PO PRN ×3 (06:34→21:44)
[2018-02-18] MEDS: risperiDONE 2 MG TABLET PO SCH (10:13)
[2018-02-18] MEDS: PRENATAL VITAMINS W/ FOLIC ACID TABLET (FP) PO SCH (10:13)
[2018-02-18] MEDS: SERTRALINE HCL 50 MG TABLET (FP) PO SCH (10:13)
--- NOTE | 2018-02-18 10:58 | PN ---
Psychiatric Progress Note Vital Signs: Vital Signs Period Temp Pulse Resp BP Sys/Pitt Pulse Ox Last 24 Hr 97.7 F 73 18-20 135/63 Date of Session: 02/18/18 Chief Complaint:: discharge visit HPI: WNL ROS: Patient is addressing alcohol dependence comorbid MDD Current Medications: Active Medications Generic Name Dose Route Start Last Admin Trade Name Freq PRN Reason Stop Dose Admin Acetaminophen 650 mg 01/22/18 20:35 Tylenol - PO Q4H PRN FEVER Al Hydroxide/Mg Hydroxide 30 ml 01/22/18 20:35 02/05/18 14:31 Mylanta Oral Suspension - PO 30 ml Q6H PRN Administration DYSPEPSIA Eucalyptus/Menthol/Phenol/Sorbitol 1 each 01/22/18 20:35 Cepastat Lozenge - MM Q4H PRN SORE THROAT Gabapentin 300 mg 02/01/18 22:00 02/18/18 06:33 Neurontin - PO 300 mg TID FREDI Administration Guaifenesin 10 ml 01/22/18 20:35 Robitussin Dm - PO Q6H PRN COUGH Hydroxyzine Pamoate 50 mg 01/23/18 10:26 02/18/18 06:34 Vistaril - PO 50 mg Q4H PRN Administration ANXIETY Ibuprofen 600 mg 02/06/18 14:31 02/13/18 06:52 Motrin - PO 600 mg Q8H PRN Administration Pain level 4-6 Loperamide HCl 4 mg 01/22/18 20:35 Imodium - PO Q6H PRN DIARRHEA Magnesium Citrate 300 ml 01/22/18 20:35 Citroma - PO Q48H PRN CONSTIPATION Magnesium Hydroxide 30 ml 01/22/18 20:35 Milk Of Magnesia - PO DAILY PRN CONSTIPATION Melatonin 5 mg 01/22/18 22:00 Melatonin PO HS PRN INSOMNIA Multivit/Folic Acid/Iron 1 tab 01/23/18 10:00 02/18/18 10:13 Vitamins (Sjr) - PO 1 tab DAILY FREDI Administration Pseudoephedrine/Triprolidine 1 combo 01/22/18 20:35 Actifed - PO TID PRN NASAL CONGESTION Quetiapine Fumarate 200 mg 01/23/18 22:00 02/17/18 21:40 Seroquel - PO 200 mg HS FREDI Administration Risperidone 2 mg 02/02/18 10:00 02/18/18 10:13 Risperdal - PO 2 mg DAILY FREDI Administration Sertraline HCl 100 mg 02/02/18 10:00 02/18/18 10:13 Zoloft - PO 100 mg DAILY FREDI Administration Thiamine HCl 100 mg 01/22/18 22:00 02/17/18 21:40 Vitamin B1 - PO 100 mg HS FREDI Administration Current Side Effect: No Lab tests ordered: No Lab tests reviewed: Yes Provider note:: Patient will complete his treatment on 02/19/18 and meet his identified goals, will continue to address his issues at [facility] inpatient treatment program. Patient verbalized his resolution to continue maintain abstinence and stay away from "people, places and things". Patient was encouraged utilize all supports available to prevent relapse. He responded well to medication management medications, he feels better, denies suicidal/ homicidal thoughts, scripts provided for 30 days supply, patient is stable for discharge tomorrow. Total face to face time:: 35 Mental Status Exam - Mental Status Exam Alert and Oriented to: Time, Place, Person Cognitive Function: Good Patient Appearance: Well Groomed Mood: Hopeful Affect: Appropriate, Mood Congruent Patient Behavior: Appropriate, Cooperative Speech Pattern: Clear, Appropriate Voice Loudness: Normal Thought Process: Intact, Goal Oriented Thought Disorder: Not Present Hallucinations: Denies Suicidal Ideation: Denies Homicidal Ideation: Denies Insight/Judgement: Fair Sleep: Fair Appetite: Fair Muscle strength/Tone: Normal Gait/Station: Normal Psychiatric Treatment Plan - Problem List (1) Alcohol dependence Current Visit: Yes (2) MDD (major depressive disorder), recurrent, severe, with psychosis Current Visit: Yes
[2018-02-18] MEDS: THIAMINE HCL 100 MG TABLET (FP) PO SCH (21:44)
[2018-02-18] MEDS: QUEtiapine FUMARATE 200 MG TABLET PO SCH (21:44)
[2018-02-19] MEDS: GABAPENTIN 300 MG CAPSULE (FP) PO SCH (06:33)
[2018-02-19] MEDS: hydrOXYzine PAMOATE 50 MG CAPSULE (FP) PO PRN ×2 (06:33→10:11)
[2018-02-19 07:09] VITALS: BP 113/61; PULSE 62; TEMP 98.1
[2018-02-19] MEDS: SERTRALINE HCL 50 MG TABLET (FP) PO SCH (10:10)
[2018-02-19] MEDS: risperiDONE 2 MG TABLET PO SCH (10:10)
[2018-02-19] MEDS: PRENATAL VITAMINS W/ FOLIC ACID TABLET (FP) PO SCH (10:10)
== END 2018-02-19 10:28 | disposition home or self-care (01) | DRG 772 ==
LOC: YASAS 15:47 → Y5N 18:55
PROVIDERS: ADMIT Psychiatry & Neurology Psychiatry; ATTEND Psychiatry & Neurology Psychiatry
PROC: HZ42ZZZ Group Counseling for Substance Abuse Treatment, Cognitive-Behavioral (ICD-10-PCS; principal; 2018-01-22)
DX: F10.20 Alcohol dependence, uncomplicated (principal); F33.3 Major depressive disorder, recurrent, severe with psychotic symptoms; F41.9 Anxiety disorder, unspecified; M54.5 Low back pain; G89.29 Other chronic pain; M94.0 Chondrocostal junction syndrome [Tietze]; G40.909 Epilepsy, unspecified, not intractable, without status epilepticus; Z87.891 Personal history of nicotine dependence; Z91.5 Personal history of self-harm
CPT/HCPCS: 36415; 80053; 81003; 81015; 85027; 86593; 87389; 93005; 93010; J2794